=== PATIENT | male | born 1940 | race Caucasian/White ===

== ENCOUNTER 2017-03-13 23:24 | Observation (INO) | payer OTHER ==
--- NOTE | 2017-03-13 23:46 | CPEKG ---
Heart Rate: 61 RR Interval: 984 P-R Interval: 220 QRSD Interval: 94 QT Interval: 428 QTC Interval: 431 P [place]: 71 QRS [place]: 48 T Wave [place]: 35 EKG Severity - ABNORMAL ECG - EKG Impression: SINUS RHYTHM EKG Impression: FIRST DEGREE AV BLOCK EKG Impression: CONSIDER LEFT VENTRICULAR HYPERTROPHY Electronically Signed By: Jewel Bernal 14-Mar-2017 07:08:52
--- NOTE | 2017-03-14 00:06 | EDPHY ---
H & P Stated Complaint: Chest pain/Pressure Time Seen by Provider: 03/13/17 23:41 HPI/ROS: Chief Complaint: Chest pain HPI: 77-year-old male with no significant medical history had onset of substernal chest pain while walking outside to turn off his sprinklers approximately 2 hours prior to arrival. Is described as a tightness at to a 3/ 10. He took 325 mg of aspirin which brought it down to a 1/10. No shortness of breath. No aggravating or alleviating factors. No nausea or vomiting. Does not have a history of same. Pain she states the pain is not radiating. 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 Does not have any other risk factors for coronary disease. ROS: 10 point Review of Systems is negative except as noted in the HPI. PMH: Of ocular melanoma status post enucleation Medications: None Allergies: None Social History: No smoking, occasional alcohol, no recreational drug use Family History: Father had prostate cancer, mother from complications of dementia Physical Exam: Gen: Awake, Alert, No Distress HEENT: Nose: no rhinorrhea Eyes: Right eye is enucleated with a prosthesis, left eye pupil is reactive with normal extraocular movements Mouth: Moist mucosa Neck: Supple, no JVD Chest: nontender, lungs clear to auscultation Heart: S1, S2 normal, 2 in 6 systolic murmur Abd: Soft, non-tender, no guarding Back: no CVA tenderness, no midline tenderness Ext: no edema, non-tender Skin: no rash Neuro: CN II-XII intact, Sensation grossly intact, Strength 5/5 in bilateral upper and lower extremities - Personal History Current Tetanus/Diphtheria Vaccine: Unsure Current Tetanus Diphtheria and Acellular Pertussis (TDAP): Unsure Tetanus Vaccine Date: THINKS <10YRS, BUT UNSURE - Medical/Surgical History Hx Asthma: No Hx Chronic Respiratory Disease: No Hx Diabetes: No Hx Cardiac Disease: No Hx Renal Disease: No Hx Cirrhosis: No Hx Alcoholism: No Hx HIV/AIDS: No Hx Splenectomy or Spleen Trauma: No Other PMH: DENIES PMH. PSH: GB, APPY,CATARACT - Social History Smoking Status: Never smoked Constitutional: Initial Vital Signs Temperature (C) 36.7 C 03/13/17 23:38 Heart Rate 80 03/13/17 23:38 Respiratory Rate 17 03/13/17 23:38 Blood Pressure 156/76 H 03/13/17 23:38 O2 Sat (%) 95 03/13/17 23:38 O2 Delivery Mode Room Air Allergies/Adverse Reactions: No Known Allergies Allergy (Unverified 05/05/15 11:51) Home Medications: Medication Instructions Recorded NK [No Known Home Meds] 05/05/15 Medical Decision Making - Diagnostics EKG Interpretation: ECG time 10/15/1944, sinus rhythm with a first-degree AV block. Normal axis, otherwise normal intervals, no acute ST or T-wave changes. Impression borderline first-degree AV block no acute ischemia. Imaging Results: Imaging Impressions Chest X-Ray 03/14/17 00:05 Impression: Mild anterior wedging of multiple upper thoracic vertebrae may represent mild age-indeterminate compression fractures. Otherwise, no acute thoracic abnormality. Imaging: I viewed and interpreted images myself ED Course/Re-evaluation: Initial troponin is negative. Patient does not have risk factors for coronary disease however this is concerning given his age. Patient has already taken aspirin here. Pain is resolved. He will be admitted to the hospitalist service for cardiac rule out. I have discussed with Dr. Reese. He will admit to his service for further care. - Data Points Laboratory Results: Laboratory Results 03/13/17 23:42 03/13/17 23:42 03/13/17 03/13/17 23:42 23:42 WBC 5.15 10^3/uL 10^3/uL (3.80-9.50) RBC 5.01 10^6/uL 10^6/uL (4.40-6.38) Hgb 11.0 g/dL L g/dL (13.7-17.5) Hct 33.9 % L % (40.0-51.0) MCV 67.7 fL L fL (81.5-99.8) MCH 22.0 pg L pg (27.9-34.1) MCHC 32.4 g/dL g/dL (32.4-36.7) RDW 18.6 % H % (11.5-15.2) Plt Count 209 10^3/uL 10^3/uL (150-400) MPV 11.5 fL fL (8.7-11.7) Neut % (Auto) 54.3 % % (39.3-74.2) Lymph % (Auto) 28.0 % % (15.0-45.0) Rains % (Auto) 12.4 % % (4.5-13.0) Eos % (Auto) 4.5 % % (0.6-7.6) Baso % (Auto) 0.4 % % (0.3-1.7) Nucleat RBC Rel Count 0.6 % H % (0.0-0.2) Absolute Neuts (auto) 2.80 10^3/uL 10^3/uL (1.70-6.50) Absolute Lymphs (auto) 1.44 10^3/uL 10^3/uL (1.00-3.00) Absolute Monos (auto) 0.64 10^3/uL 10^3/uL (0.30-0.80) Absolute Eos (auto) 0.23 10^3/uL 10^3/uL (0.03-0.40) Absolute Basos (auto) 0.02 10^3/uL 10^3/uL (0.02-0.10) Absolute Nucleated RBC 0.03 10^3/uL H 10^3/uL (0-0.01) Immature Gran % 0.4 % % (0.0-1.1) Immature Gran # 0.02 10^3/uL 10^3/uL (0.00-0.10) Platelet Estimate ADEQUATE (ADEQ) Hypochromasia 1+ H Basophilic Stippling 1+ H Oval Macrocytes 1+ H Echinocytes 1+ H Schistocytes 1+ H Smear Review By Pending Sodium 142 mEq/L mEq/L (134-144) Potassium 4.1 mEq/L mEq/L (3.5-5.2) Chloride 100 mEq/L mEq/L (97-110) Carbon Dioxide 30 mEq/l mEq/l (22-31) Anion Gap 12 mEq/L mEq/L (8-16) BUN 34 mg/dL H mg/dL (7-23) Creatinine 1.0 mg/dL mg/dL (0.7-1.3) Estimated GFR > 60 Glucose 118 mg/dL H mg/dL (70-100) Calcium 9.6 mg/dL mg/dL (8.5-10.4) Troponin I < 0.012 ng/mL ng/mL (0.000-0.034) Departure - Departure Disposition: [facility] Inpatient Acute Clinical Impression: Chest pain Condition: Fair Referrals: Washington Landis MD [Primary Care Provider] - As per Instructions
[2017-03-14 00:09] LABS: % IMMATURE GRANULYOCYTES 0.4 % (0.0-1.1); ABSOLUTE IMMATURE GRANULOCYTES 0.02 10^3/uL (0.00-0.10); ABSOLUTE NRBC COUNT 0.03 10^3/uL (0-0.01); ADD DIFF? NO; ADD MORPH? YES; ADD SCAN? NO; ATYPICAL LYMPHOCYTE FLAG 40 (0-99); FRAGMENT RBC FLAG 20 (0-99); HEMATOCRIT 33.9 % (40.0-51.0); LEFT SHIFT FLG 0 (0-99); LIPEMIA HEMOLYSIS FLAG 80 (0-99); MEAN CELL HEMOGLOBIN CONCENTR. 32.4 g/dL (32.4-36.7); MEAN PLATELET VOLUME 11.5 fL (8.7-11.7); NRBC-AUTO% 0.6 % (0.0-0.2); PLATELET CLUMPS FLAG 10 (0-99); PLATELET COUNT 209 10^3/uL (150-400); RED BLOOD CELL COUNT 5.01 10^6/uL (4.40-6.38); RED CELL DISTRIBUTION WIDTH 18.6 % (11.5-15.2)
[2017-03-14 00:11] LABS: MEAN CELL VOLUME 67.7 fL (81.5-99.8)
[2017-03-14 00:17] LABS: ANION GAP 12 mEq/L (8-16); CALCIUM 9.6 mg/dL (8.5-10.4); CARBON DIOXIDE 30 mEq/l (22-31); CHLORIDE 100 mEq/L (97-110); GLOMERULAR FILTRATION RATE > 60; GLUCOSE 118 mg/dL (70-100); POTASSIUM 4.1 mEq/L (3.5-5.2); SODIUM 142 mEq/L (134-144)
[2017-03-14 00:29] LABS: TROPONIN I < 0.012 ng/mL (0.000-0.034)
[2017-03-14 00:54] LABS: ECHINOCYTES 1+; HYPOCHROMIA 1+; MACROCYTES 1+; PLATELET ESTIMATE ADEQUATE (ADEQ); SCHISTOCYTES 1+
[2017-03-14] MEDS ORDERED: ONDANSETRON 4 MG/2 ML VIAL IVP PRN (02:18)
[2017-03-14] MEDS ORDERED: ONDANSETRON DISINTEGRATING 4 MG TAB PO PRN (02:18)
[2017-03-14] MEDS ORDERED: ACETAMINOPHEN 325 MG TAB PO PRN (02:18)
--- NOTE | 2017-03-14 02:24 | PDGENHP ---
History and Physical - Chief Complaint Chest pain - History of Present Illness 77 yo M w/ hx of distant melanoma to R eye presents after episode of chest pain. Mr. Collado has no active medical problems and takes no medications regularly. Today, he got up from his computer to turn off his sprinklers and felt acute onset left-sided chest pain. He described it as 3/10 squeezing discomfort. He denied radiation, diaphoresis, and shortness of breath. He came to the ED shortly after for evaluation. History Information - Allergies/Home Medication List Allergies/Adverse Reactions: No Known Allergies Allergy (Unverified 05/05/15 11:51) Home Medications: NK [No Known Home Meds] 05/05/15 [Last Taken Unknown] I have personally reviewed and updated: family history, medical history - Past Medical History Additional medical history: Skin cancer - Surgical History Additional surgical history: R eye removed for melanoma - Family History Positive for: cancer. Negative for: CAD - Social History Smoking Status: Never smoked Drug Use: None Review of Systems ROS: 10pt was reviewed & negative except for what was stated in HPI & below Physical Exam Temp Pulse Resp BP Pulse Ox 36.6 C 74 16 143/76 H 96 03/14/17 02:08 03/14/17 02:08 03/14/17 02:08 03/14/17 02:08 03/14/17 02:08 Constitutional: no apparent distress, appears nourished Eyes: anicteric sclera, other (Prosthetic R eye) Ears, Nose, Mouth, Throat: moist mucous membranes, no oral mucosal ulcers Cardiovascular: regular rate and rhythym, no murmur, rub, or gallop Respiratory: no respiratory distress, no rales or rhonchi Gastrointestinal: normoactive bowel sounds, soft, non-tender abdomen Skin: warm, no rashes or abrasions Musculoskeletal: full muscle strength, no muscle tenderness Neurologic: AAOx3, CN II-XII Intact Psychiatric: interacting appropriately, not anxious Lab Data & Imaging Review 03/13/17 23:42 03/13/17 23:42 WBC 5.15 10^3/uL (3.80-9.50) 03/13/17 23:42 RBC 5.01 10^6/uL (4.40-6.38) 03/13/17 23:42 Hgb 11.0 g/dL (13.7-17.5) L 03/13/17 23:42 Hct 33.9 % (40.0-51.0) L 03/13/17 23:42 MCV 67.7 fL (81.5-99.8) L 03/13/17 23:42 MCH 22.0 pg (27.9-34.1) L 03/13/17 23:42 MCHC 32.4 g/dL (32.4-36.7) 03/13/17 23:42 RDW 18.6 % (11.5-15.2) H 03/13/17 23:42 Plt Count 209 10^3/uL (150-400) 03/13/17 23:42 MPV 11.5 fL (8.7-11.7) 03/13/17 23:42 Neut % (Auto) 54.3 % (39.3-74.2) 03/13/17 23:42 Lymph % (Auto) 28.0 % (15.0-45.0) 03/13/17 23:42 Leon % (Auto) 12.4 % (4.5-13.0) 03/13/17 23:42 Eos % (Auto) 4.5 % (0.6-7.6) 03/13/17 23:42 Baso % (Auto) 0.4 % (0.3-1.7) 03/13/17 23:42 Nucleat RBC Rel Count 0.6 % (0.0-0.2) H 03/13/17 23:42 Absolute Neuts (auto) 2.80 10^3/uL (1.70-6.50) 03/13/17 23:42 Absolute Lymphs (auto) 1.44 10^3/uL (1.00-3.00) 03/13/17 23:42 Absolute Monos (auto) 0.64 10^3/uL (0.30-0.80) 03/13/17 23:42 Absolute Eos (auto) 0.23 10^3/uL (0.03-0.40) 03/13/17 23:42 Absolute Basos (auto) 0.02 10^3/uL (0.02-0.10) 03/13/17 23:42 Absolute Nucleated RBC 0.03 10^3/uL (0-0.01) H 03/13/17 23:42 Immature Gran % 0.4 % (0.0-1.1) 03/13/17 23:42 Immature Gran # 0.02 10^3/uL (0.00-0.10) 03/13/17 23:42 Platelet Estimate ADEQUATE (ADEQ) 03/13/17 23:42 Hypochromasia 1+ H 03/13/17 23:42 Basophilic Stippling 1+ H 03/13/17 23:42 Oval Macrocytes 1+ H 03/13/17 23:42 Echinocytes 1+ H 03/13/17 23:42 Schistocytes 1+ H 03/13/17 23:42 Sodium 142 mEq/L (134-144) 03/13/17 23:42 Potassium 4.1 mEq/L (3.5-5.2) 03/13/17 23:42 Chloride 100 mEq/L (97-110) 03/13/17 23:42 Carbon Dioxide 30 mEq/l (22-31) 03/13/17 23:42 Anion Gap 12 mEq/L (8-16) 03/13/17 23:42 BUN 34 mg/dL (7-23) H 03/13/17 23:42 Creatinine 1.0 mg/dL (0.7-1.3) 03/13/17 23:42 Estimated GFR > 60 03/13/17 23:42 Glucose 118 mg/dL (70-100) H 03/13/17 23:42 Calcium 9.6 mg/dL (8.5-10.4) 03/13/17 23:42 Troponin I < 0.012 ng/mL (0.000-0.034) 03/13/17 23:42 Visualized and Interpreted Chest x-ray results: Yes Chest X-Ray results: no infiltrate EKG Interpretation: Positive for: normal sinsus rhythm, NS ST wave abnormalities Assessment & Plan Assessment: 77 yo M presenting with chest pain. Plan: 1. Chest pain - Squeezing left-sided chest pain; minimally related to exertion. No prior CAD hx, only risk factor is age. Troponin and ECG unremarkable in the ED. - Monitor on toelemetry - Trend enzymes - Likely appropriate for inpatient vs. outpatient stress test Diet - Regular, caffeine free Code - Full Ppx - LMWH Dispo - Admit to observation
[2017-03-14 05:01] LABS: % IMMATURE GRANULYOCYTES 0.4 % (0.0-1.1); ABSOLUTE IMMATURE GRANULOCYTES 0.02 10^3/uL (0.00-0.10); ADD DIFF? NO; ADD MORPH? YES; ADD SCAN? NO; ATYPICAL LYMPHOCYTE FLAG 20 (0-99); FRAGMENT RBC FLAG 20 (0-99); HEMATOCRIT 31.6 % (40.0-51.0); HEMOGLOBIN 10.2 g/dL (13.7-17.5); LEFT SHIFT FLG 0 (0-99); LIPEMIA HEMOLYSIS FLAG 80 (0-99); MEAN CELL HEMOGLOBIN 21.7 pg (27.9-34.1); MEAN CELL HEMOGLOBIN CONCENTR. 32.3 g/dL (32.4-36.7); MEAN PLATELET VOLUME 11.4 fL (8.7-11.7); PLATELET CLUMPS FLAG 10 (0-99); PLATELET COUNT 171 10^3/uL (150-400); RED BLOOD CELL COUNT 4.71 10^6/uL (4.40-6.38); RED CELL DISTRIBUTION WIDTH 17.5 % (11.5-15.2)
[2017-03-14 05:02] LABS: MEAN CELL VOLUME 67.1 fL (81.5-99.8)
[2017-03-14 05:25] LABS: ECHINOCYTES 1+; HYPOCHROMIA 1+; MACROCYTES 1+; PLATELET ESTIMATE DECREASED (ADEQ); SCHISTOCYTES 1+
[2017-03-14 05:29] LABS: ANION GAP 7 mEq/L (8-16); CALCIUM 9.1 mg/dL (8.5-10.4); CARBON DIOXIDE 30 mEq/l (22-31); CHLORIDE 102 mEq/L (97-110); CREATININE 0.8 mg/dL (0.7-1.3); GLOMERULAR FILTRATION RATE > 60; GLUCOSE 84 mg/dL (70-100); SODIUM 139 mEq/L (134-144)
[2017-03-14 05:41] LABS: TROPONIN I < 0.012 ng/mL (0.000-0.034)
[2017-03-14 08:28] VITALS: O2SAT 93
[2017-03-14] MEDS ORDERED: ENOXAPARIN 40 MG/0.4 ML SYR SC SCH (09:00)
[2017-03-14 10:45] LABS: CHOLESTEROL 137 mg/dL (140-220); HIGH DENSITY LIPOPROTEIN 57 mg/dL (40-65); LDL/HDL RATIO 1.28 RATIO (1.00-3.64); LOW DENSITY LIPOPROTEIN 73 mg/dL (80-100); NON-HIGH DENSITY LIPOPROTEIN 80 mg/dL (90-129); TRIGLYCERIDE 37 mg/dL (40-150); VERY LOW DENSITY LIPOPROTEINS 7 mg/dL (8-25)
[2017-03-14 12:15] VITALS: BP 138/78; PULSE 68; RESP 17; TEMP 98.1
--- NOTE | 2017-03-14 13:51 | HOSPPROG ---
Hospitalist Progress Note Assessment/Plan: #Acute chest pain: trops and EKG normal. He opted for outpatient stress. He will call his PCP for referral #h/o right eye melanoma DC today Subjective: no CP Objective: Vital Signs Temp Pulse Resp BP Pulse Ox 36.7 C 68 17 138/78 H 93 03/14/17 12:00 03/14/17 12:00 03/14/17 12:00 03/14/17 12:00 03/14/17 12:00 Laboratory Results 03/14/17 03:37 03/14/17 05:00 03/13/17 03/14/17 03/15/17 05:59 05:59 05:59 Intake Total 150 Balance 150 - Physical Exam Constitutional: no apparent distress Eyes: PERRL Ears, Nose, Mouth, Throat: moist mucous membranes, hearing normal Cardiovascular: regular rate and rhythym, no murmur, rub, or gallop, No edema Respiratory: no respiratory distress, no rales or rhonchi Gastrointestinal: normoactive bowel sounds, soft, non-tender abdomen Genitourinary: no bladder fullness Skin: warm Musculoskeletal: full muscle strength Neurologic: AAOx3, CN II-XII Intact Psychiatric: interacting appropriately ICD10 Worksheet Patient Problems: Problems Problem Status Onset Chest pain Acute
--- NOTE | 2017-03-14 18:51 | GDS ---
[f rep st] DISCHARGE SUMMARY DISCHARGE DIAGNOSES: 1. Chest pain. 2. Distant melanoma of the right eye. HISTORY OF PRESENT ILLNESS: A 77-year-old male, history of melanoma who presented with chest tightness. He got up from his computer to turn off the sprinklers and felt acute left-sided chest pressure 3/10 discomfort. No radiation, diaphoresis, nausea, vomiting, or shortness of breath. He walks a couple miles daily without ever getting chest pain or shortness of breath. No lower extremity edema, PND, or orthopnea. HOSPITAL COURSE BY PROBLEM: 1. Atypical chest pain: Troponins, EKG unremarkable. He chose to go home and follow up with his PCP for an outpatient stress test. The patient is calling his PCP today to arrange this. DISPOSITION: The patient is stable for discharge home with his . MEDICATIONS: no changes FU: Dr. Ashby for outpatient stress. /[id number]/MODL MTDD
[2017-03-15] MEDS ORDERED: Herbals/Supplements -Info Only PO SCH (09:00)
[2017-03-16] MEDS ORDERED: MULTIVITAMINS 1 EACH TAB PO SCH (09:00)
== END 2017-03-14 13:02 | disposition home or self-care (01) ==
LOC: EDUNIT# → F2W 03-14 02:51
PROVIDERS: ADMIT Student in an Organized Health Care Education/Training Program; ATTEND Student in an Organized Health Care Education/Training Program
DX: R07.89 Other chest pain (principal); Z85.820 Personal history of malignant melanoma of skin
CPT/HCPCS: 71020; 93005; G0378; J1650

== ENCOUNTER → 2017-04-02 | Outpatient (CLI) | payer OTHER | LOC: BHFA 14:00 | PROVIDERS: ATTEND Internal Medicine Cardiovascular Disease | DX: R07.9 Chest pain, unspecified (principal) ==

== ENCOUNTER → 2017-08-07 | Outpatient (CLI) | payer OTHER | LOC: FIMAGING 10:21 | PROVIDERS: ATTEND Nurse Practitioner Adult Health | DX: Z13.820 Encounter for screening for osteoporosis (principal); M81.0 Age-related osteoporosis without current pathological fracture ==